=== PATIENT | male | born 1950 | race Caucasian/White ===

== ENCOUNTER 2021-06-17 09:20 | Emergency (ER) | payer MEDICARE ==
[~2021-06-17] VITALS: Ht 177.8 cm; Wt 99.8 kg
[~2021-06-17 09:20] MED LIST: ADULT LOW DOSE81 MG PO; LISINOPRIL-HCT1 EAC2 PO; MULTIVITAMINS1 EAC7 PO
[2021-06-17] MEDS ORDERED: METOPROLOL SUCC25 MG PO (09:53)
[2021-06-17] MEDS ORDERED: HYDROCHLOROTH12.5 MG PO (09:53)
[2021-06-17] MEDS ORDERED: LOSARTAN POTAS100 MG PO (09:53)
--- NOTE | 2021-06-17 18:24 | EKG ---
[facility] [address] [facility] [place] [address] Signed Supraventricular tachycardia Inferior infarct , age undetermined Abnormal ECG No previous ECGs available Confirmed by ADITI BONILLA MD ([id number]) on 06/17/2021 6:24:36 PM Electronically Signed By: ADITI BONILLA MD 06/17/21 182 PATIENT NAME: QUIANA MADRIGAL Electrocardiogram DATE OF : 52 PHYSICIAN: ADITI BONILLA MD REPORT #: [id number] REPORT IS CONFIDENTIAL AND NOT TO BE RELEASED WITHOUT AUTHORIZATION
--- NOTE | 2021-06-17 18:25 | EKG ---
[facility] [address] [facility] [place] [address] Signed Normal sinus rhythm Inferior infarct (cited on or before 17-JUN-2021) Abnormal ECG When compared with ECG of 17-JUN-2021 09:26, (Unconfirmed) Vent. rate has decreased BY 83 BPM Nonspecific T wave abnormality has replaced inverted T waves in Inferior leads Confirmed by ADITI BONILLA MD ([id number]) on 06/17/2021 6:24:55 PM Electronically Signed By: ADITI BONILLA MD 06/17/21 1825 PATIENT NAME: QUIANA MADRIGAL Electrocardiogram DATE OF : [birth year] PHYSICIAN: ADITI BONILLA MD REPORT #: [id number] REPORT IS CONFIDENTIAL AND NOT TO BE RELEASED WITHOUT AUTHORIZATION
== END 2021-06-17 11:05 | disposition home or self-care (01) ==
LOC: ED 09:20
DX: I47.1 Supraventricular tachycardia (principal); Z79.899 Other long term (current) drug therapy; Z79.82 Long term (current) use of aspirin
CPT/HCPCS: 36415; 71045; 80053; 83735; 84484; 85025; 85060; 85379; 93005; 93010; 96374; 99285-25; J0153

== ENCOUNTER 2021-10-14 10:25 | Day surgery (SDC) | payer MEDICARE, OTHER ==
[~2021-10-14] VITALS: Ht 177.8 cm; Wt 100.0 kg
[~2021-10-14 10:25] MED LIST changes: +FLECAINIDE ACET50 MG PO; +HYDROCHLOROTH12.5 MG PO; +LOSARTAN POTAS100 MG PO; +METOPROLOL SUCC25 MG PO; +OSTERA TABLET1 EACH PO; +VERAPAMIL ER180 MG PO; +VIT C-ROSE HIP500 MG PO
--- NOTE | 2021-10-14 11:08 | NUR ---
JULY 2021 FELL OFF LADDER. NO INJURIES.
--- NOTE | 2021-10-14 11:10 | NUR ---
STATES LEFT FOOT NUMB AND LITTLE BIT ON R DUE TO PINCHED NERVE.
--- NOTE | 2021-10-14 12:52 | NUR ---
10/14/21 1252 Caridad Altman 1230 PT ARRIVED TO PACU ASLEEP BUT EASILY AROUSABLE. HE WAS BREATHING ON HIS OWN AND HIS O2 SATURATION IS AT 98%. PT DENIES ANY PAIN OR NAUSEA. GAVE PT A GLASS OF WATER AND HE IS ABLE TO DRINK IT WITHOUT ANY DISCOMFORT.
--- NOTE | 2021-10-19 08:06 | PATH ---
[facility] [address] [facility] [place], [place] [address] Signed SPECIMEN(S): A BONE MARROW - CORE SPECIMEN(S): B BONE MARROW - ASPIRATION SPECIMEN(S): C FLOW CYTOMETRY IN BM EDTA CLINICAL HISTORY: Bone marrow biopsy. 71-year-old male with history of MDS and CLL in 2016, observation only, now with progressive macrocytic anemia. D46.9 (myelodysplastic syndrome, unspecified) DIAGNOSIS SUMMARY: Peripheral blood - Moderate macrocytic, normochromic anemia. Bone marrow aspirate smears, clot section cell block, and trephine biopsy: - Hypercellular bone marrow with erythroid hyperplasia, dyserythropoiesis, and ring sideroblasts consistent with myelodysplastic syndrome (MDS). - Slight increased number of plasma cells. - Please see Diagnostic Comment. DIAGNOSTIC COMMENT: Bone marrow morphologic evaluation is significant for marked hypercellularity with erythroid hyperplasia, mild dyserythropoiesis with many ring sideroblasts identified. Overall findings are consistent with myelodysplastic syndrome with ring sideroblasts. No increase in blasts is identified. Slight increased number of plasma cells identified by morphology and immunohistochemistry (4-5%). Concurrent flow cytometry analysis demonstrates the presence of a minute population of monotypic plasma cells with kappa light chain restriction. Clinical correlation with protein electrophoresis and radiologic findings will be needed for further assessment of this patient's plasma cell dyscrasia. Patient history of chronic lymphocytic leukemia (CLL) is noted. The current study shows no increased number of B-cells by morphology or immunohistochemistry. Flow cytometry analysis is negative for a monotypic population of B-cells or features of lymphoproliferative disorder. Cytogenetic studies, MDS FISH, and SF3B1 mutation studies are pending and will be reported in an addendum. This case is reviewed and dictated by Christopher Gutierrez MD. A board-certified hematopathologist. NA:smn:C1NR PATIENT NAME: QUIANA MADRIGAL PATHOLOGY DATE OF : 52 REPORT #: [id number] PHYSICIAN: JUMANA PATHOLOGY PCP: ASIYA CHACON MD REPORT IS CONFIDENTIAL AND NOT TO BE RELEASED WITHOUT AUTHORIZATION [facility] [address] [facility] [place], [place] [address] Signed PERIPHERAL BLOOD: HEMOGRAM ([facility]; 10/14/2021): WBC 7.0 K/uL, RBC 2.31 M/uL, HGB 8.6 g/dL, HCT 25.0%, MCV 108.4 fL, MCH 37.4 pg, MCHC 34.5 g/dL, RDW 19.6%, PLT 334 K/uL. DIFFERENTIAL COUNT: 60% neutrophils, 33% lymphocytes, 5% monocytes, 1% eosinophils, 1% basophils. Review of peripheral blood smear and CBC data demonstrate that the RBCs are decreased in number and are macrocytic, normochromic with moderate anemia present. Moderate anisopoikilocytosis is present with occasional ovalocytes seen. No rouleaux formation is identified. Occasional nucleated RBCs are encountered. The WBCs are normal in number and distribution. The neutrophils show unremarkable morphology. No immature cells are seen. The lymphocytes show a spectrum of reactive morphology including occasional large granular lymphocytes. The platelets are normal in number and unremarkable in morphology. BONE MARROW: BONE MARROW ASPIRATE SMEARS: The bone marrow aspirate smears are adequately cellular for evaluation. Trilineage hematopoiesis is present with progressive ordinary maturation. There is no increase in blasts noted. Erythroid hyperplasia is noted. The erythroid precursors show megaloblastic changes with occasional nuclear budding and cells and mitosis. The plasma cells are not increased and show unremarkable morphology. The lymphocytes are normal in number and mature in morphology. The megakaryocytes are scattered and appear normal in number with occasional micromegakaryocytes encountered. BONE MARROW DIFFERENTIAL: 1% blasts, 3% promyelocytes, 8% myelocytes, 25% segmented neutrophils, 7.6% lymphocytes, 1.4% monocytes, 3% eosinophils, 4% plasma cells, and 47% erythroid. BONE MARROW CORE BIOPSY AND CLOT SECTION: The bone marrow core biopsy demonstrates a hypercellular bone marrow for age with an average cellularity of 80%. Trilineage hematopoiesis is present with morphologic characteristics as described above. There are no lymphoid aggregates, granulomas, or metastatic tumor cells present. No increase in blasts is identified. No increase in plasma cells or large sheets are seen. The megakaryocytes are scattered and appear normal in number with occasional large platelets forming small aggregates noted. The cell block shows similar findings. PATIENT NAME: QUIANA MADRIGAL PATHOLOGY DATE OF : 52 REPORT #: [id number] PHYSICIAN: JUMANA PATHOLOGY PCP: ASIYA CHACON MD REPORT IS CONFIDENTIAL AND NOT TO BE RELEASED WITHOUT AUTHORIZATION [facility] [address] [place], [place] [address] Signed SPECIAL STAINS (with appropriately active control): - Iron (aspirate smears): Markedly increased storage iron and sideroblastic iron with increased ring sideroblasts (more than 25%). - Iron (block B): Increased storage iron with ring sideroblasts identified. - Reticulin stain: Moderate increase in bone marrow reticulin fibrosis (MF-2). IMMUNOHISTOCHEMICAL STAINS (with appropriately active control): (Performed on block A1): - CD34: Highlights scattered positive cells with no increase in blasts present. - CD117: Highlights scattered positive cells with no increase in blasts present. - Myeloperoxidase: Highlights myeloid precursors. - CD71: Highlights erythroid precursors and confirm erythroid hyperplasia. - Factor VIII: Highlights megakaryocytes. - CD20: Negative for increased number of B-cells. - Pax5: Positive for scattered few B-cells - CD3: Highlights scattered T-cells. - CD5: Positive in T-cells - CD138: Highlight slightly increased plasma cells (4-5%) with perivascular distribution. (Performed on block B1): - CD138: Highlight slightly increased plasma cells (4-5%) with perivascular distribution. - PAX5: Scattered positive B-cells. NA:smn FLOW CYTOMETRY: Bone marrow aspirate, flow cytometry: - Monotypic plasma cells are detected (0.3%). - No increase in blasts (0.6% myeloblasts). - Myeloid with variable maturation pattern. - No atypical B-cell population. - T-cell subset with variable marking. - See Comment. COMMENT: About 0.3% of total events are kappa-restricted monotypic plasma cells. Flow cytometry analysis often underestimates the amount of plasma cells. Correlation with clinical and histologic findings is needed for further characterization of this patient's plasma cell dyscrasia. Also, correlation with clinical, morphologic, and genetic findings is PATIENT NAME: QUIANA MADRIGAL PATHOLOGY DATE OF : 52 REPORT #: [id number] PHYSICIAN: JUMANA PATHOLOGY PCP: ASIYA CHACON MD REPORT IS CONFIDENTIAL AND NOT TO BE RELEASED WITHOUT AUTHORIZATION [facility] [address] [facility] [place] [address] Signed recommended for full interpretation and to assess for disease processes not fully examined by flow cytometry analysis, including myelodysplastic syndrome and myeloproliferative neoplasm. A T-cell subset is detected (15% of lymphocytes, 2% of total events) co-expressing CD3 and CD56, likely to represent large granular lymphocytes which could be reactive. Correlation with morphology is recommended. FLOW CYTOMETRY ANALYSIS: FLOW DIFFERENTIAL (% Total CD45 vs. SSC gating): Myeloid 79%; Lymphoid 11%; Monocyte 2%; Dim CD45/Blast: 0.6%. Cell Count: 7.7 x 10*3/uL. POPULATION ANALYSIS: BLASTS: Analysis of the dim CD45 gate demonstrates 0.6% myeloblasts by CD34/CD117. LYMPHOID CELLS: The lymphocyte gate comprises 11% of total events and includes 76% T-cells with a CD4:CD8 ratio of 0.8:1. A T-cell subset is detected (15% of lymphocytes, 2% of total events) co-expressing CD3 and CD56 with dimmer to negative CD5 expression. 7% of lymphocytes are polyclonal B-cells with a kappa:lambda ratio of 2.2:1. The remainders are NK-cells. MYELOID CELLS: The myeloid population comprises 79% of the total events. Some decreased CD10 expression is observed. MONOCYTES: The monocyte population comprises 2% of the total events. Monocytes are not increased. No aberrant immunophenotypic expression is detected. PLASMA CELLS: An increased number of plasma cells are observed in the screening gate of CD45 neg-dim/CD38. For this reason, select additional antibodies are run to further characterize the plasma cells. 0.3% ckappa-restricted plasma cells are detected (n=131) expressing CD45 DIM-NEG, CD38 BR, CD138 DIM-MOD and cKAPPA MOD-BR while negative for CD19, CD20 and CD56. A background population of polyclonal plasma cells is also detected (0.9% of total events, n=423) expressing CD19 with a ckappa:clambda ratio of 1.5:1. MAST CELLS: 0.2% of total events are mast cells (n=41). Initial Antibodies Used: KAPPA, LAMBDA, CD20, CD10, CD19, CD23, CD38, CD16, CD56, CD8, CD5, CD2, CD4, CD7, CD3, CD14, CD33, CD13, HLADR, CD34, CD117, CD15, CD45. Additional Antibodies (necessary for further plasma cell analysis): ckappa, clambda, CD138. Total Antibodies Used: 26. PATIENT NAME: QUIANA MADRIGAL PATHOLOGY DATE OF : 52 REPORT #: [id number] PHYSICIAN: JUMANA PATHOLOGY PCP: ASIYA CHACON MD REPORT IS CONFIDENTIAL AND NOT TO BE RELEASED WITHOUT AUTHORIZATION [facility] [address] [place], [place] [address] Signed JNB FINAL DIAGNOSIS PERFORMED BY: Christopher Gutierrez MD, FACP, Oct 15 2021 2:48PM CYTOGENETICS: Pending, to be reported by addendum. FISH ANALYSIS: Pending, to be reported by addendum. MOLECULAR / PCR: Pending, to be reported by addendum. GROSS DESCRIPTION: Two specimens are received in two containers, labeled "TJ." A. The specimen, labeled "TJ, core," is received in formalin and consists of two cores of red-brown bone (1.9-2.0 cm in length x 0.2 cm in diameter). The specimen is submitted entirely in cassette (A1) following decalcification in Immunocal. B. The specimen, labeled "TJ, clot," is received in formalin and consists of a portion of red-brown clot (1.8 x 0.8 x 0.3 cm in aggregate). The specimen is submitted entirely in cassette (B1). AC (under the direct supervision of a pathologist) The Gross Description was prepared using a voice recognition system. The report was reviewed for accuracy; however, sound-alike word errors, addition and/or deletions may occur. If there is any question about this report, please contact Client Services. ADDITIONAL NOTES: Immunohistochemical and/or in situ hybridization studies were performed on this case with the appropriate positive controls that react as expected. This test was developed and its performance characteristics determined by [facility]. It has not been cleared or approved by the U.S. Food and Drug Administration. The FDA has determined that such clearance or approval is not necessary. This test is used for clinical purposes. It should not be regarded as investigational or for research. [facility] is certified under the Clinical Laboratory Improvement Amendments of 1988 (CLIA) as qualified to perform high complexity clinical laboratory testing. This assay has not been validated for specimens that have been decalcified. In this case, certain antibodies were performed by both immunohistochemistry and flow cytometry analysis because flow cytometry analysis did not fully PATIENT NAME: QUIANA MADRIGAL PATHOLOGY DATE OF : 52 REPORT #: [id number] PHYSICIAN: [facility] PCP: ASIYA CHACON MD REPORT IS CONFIDENTIAL AND NOT TO BE RELEASED WITHOUT AUTHORIZATION [facility] [address] [place], [place] [address], [place] [address] Signed explain all the light microscopic findings. Immunohistochemistry aided in the analysis. Both methods are deemed medically necessary in this case. This test was developed and its performance characteristics determined by [facility]. It has not been cleared or approved by the US Food and Drug Administration. The FDA does not require this test to go through premarket FDA review. This test is used for clinical purposes. It should not be regarded as investigational or for research. This laboratory is certified under the Clinical Laboratory Improvement Amendments (CLIA) as qualified to perform high complexity clinical laboratory testing. PERFORMING LABORATORY: The technical component was performed by [facility], [address] [place] [address] (CLIA#: [id number]). Professional interpretation was performed by [facility], [facility], [address] [place] [address] (CLIA#: [id number]) The technical component was performed by [facility], [address] [place] [id number] (CLIA# [id number]). Professional interpretation was performed by [facility], [facility], [address] [place] [address] (CLIA#: [id number]) IMAGES: A: [id number] A: [id number] Diagnostician: Jerald Mclain MD Pathologist Electronically Signed 10/16/2021 Copies: ~ PATIENT NAME: QUIANA MADRIGAL PATHOLOGY DATE OF : 52 REPORT #: [id number] PHYSICIAN: JUMANA PATHOLOGY PCP: ASIYA CHACON MD REPORT IS CONFIDENTIAL AND NOT TO BE RELEASED WITHOUT AUTHORIZATION
== END 2021-10-14 13:10 | disposition home or self-care (01) ==
LOC: DS 10:25 → OPS 10:25 → DS 12:00 → OPS 13:10
PROVIDERS: ATTEND Specialist
PROC: 079T3ZX Drainage of Bone Marrow, Percutaneous Approach, Diagnostic (ICD-10-PCS; 2021-10-14)
PROC: 07DR3ZX Extraction of Iliac Bone Marrow, Percutaneous Approach, Diagnostic (ICD-10-PCS; principal; 2021-10-14 12:00)
DX: D46.9 Myelodysplastic syndrome, unspecified (principal); I10 Essential (primary) hypertension; Z88.8 Allergy status to other drugs, medicaments and biological substances
CPT/HCPCS: 00520; 80053; 82232; 82607; 82668; 82728; 82746; 83010; 83540; 83550; 83615; 84403; 85025; 85060; J2001; J2704; J7121

== ENCOUNTER 2024-01-24 01:53 | Emergency (ER) | payer MEDICARE, OTHER ==
[~2024-01-24] VITALS: Ht 177.8 cm; Wt 100.9 kg
[2024-01-24] MEDS ORDERED: LOSARTAN POTASS25 MG (02:12)
[2024-01-24 02:16] LABS: BASOPHILS 1.7 % (0-2); EOSINOPHILS 1.3 % (0-6); HEMATOCRIT 24.3 % (35.0-50.0); HEMOGLOBIN 8.4 g/dL (12.0-18.0); LYMPHOCYTES 15.1 % (24-44); MCH 37.2 (27-36); MCHC 34.3 g/dl (30-36); MCV 108.2 fl (81-99); MONOCYTES 10.5 % (0-12); NEUTROPHILS 71.4 % (39-80); PLATELET COUNT 293 K/uL (140-440); RBC 2.25 M/ul (4.3-5.7); RDW 30.7 (10.5-15.0)
[2024-01-24 02:47] LABS: ALBUMIN 4.2 g/dL (3.4-5.0); ALBUMIN/GLOBULIN RATIO 1.35 (1.1-2.4); ANION GAP 15.3 (7-21); BUN/CREATININE RATIO 16.21 (6.0-28.6); CREATININE, SERUM 1.11 mg/dL (0.70-1.30); POTASSIUM 4.3 mmol/L (3.5-5.1); PROTEIN, TOTAL 7.3 g/dL (6.4-8.2)
[2024-01-24 03:03] LABS: ABO A; ANTIBODY SCREEN NEGATIVE; RH POSITIVE
[2024-01-24 03:04] LABS: INFLUENZA B NAA NEGATIVE (NEGATIVE); RESPIRATORY SYNCYTIAL VIR NAA NEGATIVE (NEGATIVE)
[2024-01-24] MEDS ORDERED: OSELTAMIVIR PHOSPHATE 75 MG HOME.PACK PO ONE (03:30)
[2024-01-24 04:15] VITALS: BP 130/68
--- NOTE | 2024-01-24 22:55 | EKG ---
[facility] [address] [facility] [place] [address] Signed Sinus rhythm with premature atrial complexes Possible Inferior infarct (cited on or before 17-JUN-2021) Abnormal ECG When compared with ECG of 17-JUN-2021 09:47, premature atrial complexes are now present Confirmed by Janell Rico MD () on 01/24/2024 10:54:57 PM Electronically Signed By: JANELL RICO MD 01/24/24 2255 PATIENT NAME: QUIANA MADRIGAL Electrocardiogram DATE OF : 52 PHYSICIAN: JANELL RICO MD REPORT #: [id number] REPORT IS CONFIDENTIAL AND NOT TO BE RELEASED WITHOUT AUTHORIZATION
[2024-01-25 08:46] LABS: IS CROSSMATCH COMPATIBLE
[2024-01-25 08:47] LABS: IS CROSSMATCH COMPATIBLE
== END 2024-01-24 04:16 | disposition home or self-care (01) ==
LOC: ED 01:53
PROVIDERS: Internal Medicine
DX: J10.1 Influenza due to other identified influenza virus with other respiratory manifestations (principal); Z79.82 Long term (current) use of aspirin; Z88.8 Allergy status to other drugs, medicaments and biological substances
CPT/HCPCS: 36415; 71045; 80053; 83880; 84484; 85025; 85060; 86850; 86900; 86901; 86922; 87502; 93005; 93010; 99285-25; A9270; P9016; U0002

== ENCOUNTER 2024-04-28 02:25 | Emergency (ER) | payer MEDICARE, OTHER ==
[~2024-04-28] VITALS: Ht 177.8 cm; Wt 103.1 kg
[~2024-04-28 02:25] MED LIST changes: +LOSARTAN POTASS25 MG
[2024-04-28] MEDS ORDERED: LACTATED RINGER'S 1,000 ML IV ONE (02:45)
[2024-04-28 02:47] LABS: EOSINOPHILS 2.1 % (0-6)
[2024-04-28 02:51] LABS: BASOPHILS 1.4 % (0-2); HEMATOCRIT 19.7 % (35.0-50.0); HEMOGLOBIN 6.8 g/dL (12.0-18.0); LYMPHOCYTES 43.8 % (24-44); MCH 34.7 (27-36); MCHC 34.7 g/dl (30-36); MCV 99.9 fl (81-99); MONOCYTES 2.7 % (0-12); PLATELET COUNT 182 K/uL (140-440); RBC 1.97 M/ul (4.3-5.7); RDW 25.9 (10.5-15.0)
[2024-04-28 02:57] LABS: INR 1.12 (0.80-1.30); PROTIME 14.3 Sec (11.2-14.2)
[2024-04-28] MEDS ORDERED: INQOVI 35 MG-11 EACH PO (02:58)
[2024-04-28 03:10] LABS: ALBUMIN 3.8 g/dL (3.4-5.0); ALBUMIN/GLOBULIN RATIO 1.19 (1.1-2.4); ANION GAP 14.2 (7-21); BILIRUBIN, TOTAL 0.9 mg/dL (0.2-1.0); BUN/CREATININE RATIO 22.22 (6.0-28.6); CREATININE, SERUM 0.99 mg/dL (0.70-1.30); MAGNESIUM 1.9 mg/dL (1.8-2.4); POTASSIUM 4.2 mmol/L (3.5-5.1)
[2024-04-28] MEDS ORDERED: FUROSEMIDE 20 MG/2 ML VIAL IV ONE (04:15)
[2024-04-28] MEDS ORDERED: ACETAMINOPHEN 325 MG TAB PO PRN (04:15)
[2024-04-28] MEDS ORDERED: diphenhydrAMINE HCL 50 MG/ML VIAL IV PRN (04:15)
[2024-04-28 09:22] VITALS: BP 114/67
--- NOTE | 2024-04-29 21:31 | EKG ---
[facility] [address] [facility] [place] [address] Signed Sinus rhythm with occasional and consecutive premature ventricular complexes Abnormal ECG When compared with ECG of 24-JAN-2024 01:59, premature ventricular complexes are now present premature atrial complexes are no longer present Confirmed by Karel Malhotra DO ([id number]) on 04/29/2024 9:31:44 PM Electronically Signed By: KAREL MALHOTRA DO 04/29/242130 PATIENT NAME: QUIANA MADRIGAL Electrocardiogram DATE OF : 52 PHYSICIAN: KAREL MALHOTRA DO REPORT #: [id number] REPORT IS CONFIDENTIAL AND NOT TO BE RELEASED WITHOUT AUTHORIZATION
== END 2024-04-28 09:23 | disposition home or self-care (01) ==
LOC: ED 02:25
PROVIDERS: Family Medicine
DX: D64.9 Anemia, unspecified (principal); T50.905A Adverse effect of unspecified drugs, medicaments and biological substances, initial encounter; D46.9 Myelodysplastic syndrome, unspecified; Z88.8 Allergy status to other drugs, medicaments and biological substances; Z79.899 Other long term (current) drug therapy
CPT/HCPCS: 36415; 36430; 71045; 80053; 83735; 83880; 84484; 85025; 85060; 85610; 86922; 93005; 93010; 96374; 99285-25; J1940; J7121; P9016

== ENCOUNTER 2024-05-14 00:21 | Emergency (ER) | payer MEDICARE, OTHER ==
[~2024-05-14] VITALS: Ht 177.8 cm; Wt 104.0 kg
[~2024-05-14 00:21] MED LIST changes: +INQOVI 35 MG-11 EACH PO
--- OUTSIDE RECORDS SUMMARY | 2024-05-14 00:28 | XMS ---
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 Jesica VISIT COUNT (12 MO.) 3 [facility] TOTAL 3 NOTE: Visits indicate total known visits. ED/UCC VISIT TRACKING (12 MO.) 05/14/2024 00:22 [facility] TYPE: Emergency COMPLAINT: - FEVER/CANCER PT 04/28/2024 02:26 [facility] TYPE: Emergency COMPLAINT: - CHEST PAIN DIAGNOSES: - Adverse effect of unspecified drugs, medicaments and biological substances, initial encounter - Allergy status to other drugs, medicaments and biological substances - Anemia, unspecified - Myelodysplastic syndrome, unspecified - Other chest pain - Other mcc (current) drug therapy 01/24/2024 01:54 [facility] TYPE: Emergency COMPLAINT: - DIFFICULTY BREATHING DIAGNOSES: - Allergy status to other drugs, medicaments and biological substances - Influenza due to other identified influenza virus with other respiratory manifestations - terminal carman (current) use of aspirin - Shortness of breath INPATIENT VISIT TRACKING (12 MO.) No inpatient visits to display in this time frame [email or web address]
[2024-05-14 01:20] LABS: HEMOGLOBIN 8.1 g/dL (12.0-18.0)
[2024-05-14 01:25] LABS: EOSINOPHILS 1.7 % (0-6); HEMATOCRIT 23.9 % (35.0-50.0); LYMPHOCYTES 93.9 % (24-44); MCH 32.2 (27-36); MCHC 33.9 g/dl (30-36); MONOCYTES 1.4 % (0-12); PLATELET COUNT 225 K/uL (140-440); RBC 2.51 M/ul (4.3-5.7); RDW 17.8 (10.5-15.0)
[2024-05-14 01:35] LABS: ALBUMIN 3.2 g/dL (3.4-5.0); ALBUMIN/GLOBULIN RATIO 0.91 (1.1-2.4); ANION GAP 11.4 (7-21); BILIRUBIN, TOTAL 0.9 mg/dL (0.2-1.0); BUN/CREATININE RATIO 19.79 (6.0-28.6); CALCIUM 8.5 mg/dL (8.5-10.1); CREATININE, SERUM 0.96 mg/dL (0.70-1.30); POTASSIUM 4.4 mmol/L (3.5-5.1); PROTEIN, TOTAL 6.7 g/dL (6.4-8.2)
[2024-05-14 01:43] LABS: BILIRUBIN, URINE NEGATIVE (negative); BLOOD/HGB, URINE NEGATIVE (Negative); KETONE, URINE NEGATIVE (Negative); LEUK ESTERASE, URINE NEGATIVE (negative); NITRITE, URINE NEGATIVE (negative); PH, URINE 6.5 (5-7)
[2024-05-14 01:56] LABS: INFLUENZA B NAA NEGATIVE (NEGATIVE); RESPIRATORY SYNCYTIAL VIR NAA NEGATIVE (NEGATIVE)
[2024-05-14 02:41] LABS: BASOPHILS 0.3 % (0-2); BASOPHILS, ABSOLUTE 0 %; EOSINOPHILS 1.8 % (0-6); EOSINOPHILS, ABSOLUTE 0; HEMATOCRIT 23.9 % (35.0-50.0); HEMOGLOBIN 8.3 g/dL (12.0-18.0); MCH 32.9 (27-36); MCHC 34.5 g/dl (30-36); MCV 95.4 fl (81-99); MONOCYTES 1.1 % (0-12); MONOCYTES, ABSOLUTE 0; NEUTROPHILS 3.8 % (39-80); NEUTROPHILS, ABSOLUTE 0; PLATELET COUNT 220 K/uL (140-440); RBC 2.51 M/ul (4.3-5.7); RDW 18.2 (10.5-15.0)
[2024-05-14] MEDS ORDERED: AMOX TR-K CLV1 EAC1 PO (02:49)
[2024-05-14] MEDS ORDERED: CIPRO500 MG PO (02:49)
[2024-05-14] MEDS ORDERED: AMOXICILLIN/CLAVULANATE K 875 MG HOME.PACK PO ONE (03:00)
[2024-05-14] MEDS ORDERED: CIPROFLOXACIN 500 MG TAB PO ONE (03:00)
[2024-05-14 03:22] VITALS: BP 145/71
== END 2024-05-14 03:30 | disposition home or self-care (01) ==
LOC: ED 00:21
PROVIDERS: Family Medicine
DX: D70.9 Neutropenia, unspecified (principal); R50.81 Fever presenting with conditions classified elsewhere; D46.9 Myelodysplastic syndrome, unspecified; Z88.8 Allergy status to other drugs, medicaments and biological substances; Z79.899 Other long term (current) drug therapy
CPT/HCPCS: 36415; 80053; 81003; 85025; 85060; 87040; 87502; 99283; U0002

== ENCOUNTER 2024-09-06 10:30 | Day surgery (SDC) | payer MEDICARE, OTHER ==
[~2024-09-06] VITALS: Ht 177.8 cm; Wt 104.0 kg
[~2024-09-06 10:30] MED LIST changes: +AMOX TR-K CLV1 EAC1 PO; +CIPRO500 MG PO; +IBLOOD GLUCOSE TEST STRIP 1 EA TEST VI PRN; +LACTATED RINGER'S 1,000 ML IV SCH; +LIDOCAINE HCL 1% 5 ML SDV INJ ONE; +MIDAZOLAM HCL 5 MG/5 ML VIAL IV PRN; +VITAMIN C500 M4 PO; +fentaNYL citrate 100 MCG/2 ML VIAL IV PRN
[2024-09-06 10:57] LABS: BASOPHILS 0.5 % (0.2-1.2); BASOPHILS, ABSOLUTE 0.04 K/uL (0.01-0.08); EOSINOPHILS 2.3 % (0.8-7.0); EOSINOPHILS, ABSOLUTE 0.19 K/uL (0.04-0.54); LYMPHOCYTES 40.7 % (21.8-53.1); MCH 34.9 PG (25.7-32.2); MCHC 34.3 g/dL (32.3-36.5); MCV 101.5 fL (79.0-92.2); MONOCYTES 10.1 % (5.3-12.2); MONOCYTES, ABSOLUTE 0.82 K/uL (0.30-0.82); NEUTROPHILS 46.0 % (34.0-67.9); NEUTROPHILS, ABSOLUTE 3.72 K/uL (1.78-5.38); RBC 3.93 M/uL (4.63-6.08)
[2024-09-06 11:28] VITALS: BP 154/64
[2024-09-06] MEDS ORDERED: LIDOCAINE HCL 2% 5 ML SDV ONE (11:52)
[2024-09-06 14:20] VITALS: BP 125/61
--- NOTE | 2024-09-06 14:27 | NUR ---
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 O2 AT 2L PER NC, BREATHING EVEN AND NON LABORED. LR INFUSING TO RW IV. ALL MONITORS IN PLACE. 1222- PT ASSISTED BY MYSELF AND 3 OTHER STAFF TO ROLL TO BACK, HEAD OF BED ELEVATED. PT TOLERATED WELL. DENIES PAIN AND NAUSEA. ASKS TO FALL BACK TO SLEEP. 1230- PT MOVED TO ROOM AIR AT THIS TIME, NO SIGNS OF DISTRESS. PT HAS REMAINED AWAKE AND REPORTS HE FEELS GREAT. 1240- PT UP TO SIDE OF BED, DENIES NAUSEA AND DIZZINESS. PT TO GET DRESSED, SALINE LOCK REMOVED, TIP INTACT, DRESSING APPLIED. PT CALLED FOR RIDE HOME. 1250- TRANSFERRED TO WHEELCHAIR WITH STEADY GAIT, VERBALIZED UNDERSTANDING OF INSTRUCTIONS. TAKEN OUT TO FAMILY CAR WITH ALL BELONGINGS, NO SIGNS OF DISTRESS.
--- NOTE | 2024-09-18 17:19 | PATH ---
[facility] [address] [facility] [place], [place] [address] Signed SPECIMEN(S): A BONE MARROW - CORE SPECIMEN(S): B BONE MARROW - ASPIRATION SPECIMEN(S): C BM, EDTA CLINICAL HISTORY: 74-year-old male [id number] Mut+ sideroblastic anemia. Assess disease status "illegible word "and a course of treatment DIAGNOSIS SUMMARY: Peripheral blood, smear - Macrocytosis. Bone marrow, aspirate, cell block of clotted aspirate, core biopsy: - Slightly hypercellular bone marrow with trilineage progressive hematopoiesis. - Negative for dyspoiesis, or increased ring sideroblasts. - See diagnostic comment. DIAGNOSTIC COMMENT: Patient history of sideroblastic anemia is noted. The current bone marrow evaluation is significant for slight hypercellularity. No dyspoiesis is identified. No ring sideroblasts are seen. In comparison to previous bone marrow study ([id number],10/14/2021), the cellularity is decreased and no erythroid hyperplasia or ring sideroblasts identified in the current study. Cytogenetic studies, FISH panel for MDS and myeloid NGS C are pending and will be reported in an PERIPHERAL BLOOD: Hemogram ([facility], 09/06/2024): WBC 8.09K/UL, RBC 3.90 3M/UL, hemoglobin 13.7 g/DL, hematocrit 39.9 percent, MCV 101.5 FL, MCH 34.9 PG, MCHC 34.3 g/DL, RDW SD 58.6 FL, RDW-CV 15.7%, platelets 124K/UL. Peripheral blood differential: 46% neutrophils, 41% lymphocytes, 10% monocytes, 2% eosinophils and 1% basophils. Review of peripheral blood smear and CBC data demonstrate that RBCs are slightly decreased in number and are macrocytic normochromic with no anemia present. The WBCs are normal in number and distribution. The neutrophils show unremarkable morphology. No immature cells/blasts are seen. The platelets are slightly decreased in number with unremarkable morphology. PATIENT NAME: QUIANA MADRIGAL PATHOLOGY DATE OF : 52 REPORT #: [id number] PHYSICIAN: JUMANA PATHOLOGY PCP: ASIYA CHACON MD REPORT IS CONFIDENTIAL AND NOT TO BE RELEASED WITHOUT AUTHORIZATION [facility] [address] [place], [place] [address] Signed BONE MARROW: Bone marrow aspirate smears: The bone marrow aspirate smears are adequately cellular for evaluation. Trilineage hematopoiesis is present with progressive maturation. There is no increase in blasts identified. The M:E ratio appears normal. There is no dyshematopoiesis identified. The megakaryocytes are scattered and appear normal in number and morphology. Bone marrow differential: 1% blasts, 2% promyelocytes, 20% myelocytes, 40% neutrophils, 6% lymphocytes, 6% eosinophils, and 24% erythroid. Bone marrow core biopsy and clot section the bone marrow core biopsy demonstrates slightly hypercellular bone marrow for age with marrow measuring cellularity of 40%. Trilineage hematopoiesis is present with progressive pulmonary maturation. There are no lymphoid aggregates, granulomas or metastatic tumor cells present. The megakaryocytes are scattered and appear normal in number and morphology. The clot section shows similar findings. Special stain: Performed with appropriately reactive controls and show the following results: Iron (aspirate smear): Markedly increased storage iron, negative for ring sideroblasts. Iron (block B1): Absent Iron (block B2): Storage iron present, increased with rare ring sideroblasts. Reticulin (block A1: Mild increase in bone marrow reticulin fibrosis (MF�1). Immunohistochemical stains: Performed on block A1 with appropriately reactive controls and show the following results: CD34/CD117: No increase in blasts. CD71: Highlights erythroid precursors. Myeloperoxidase: Highlights myeloid precursors with normal distribution. Factor VIII: Highlights scattered megakaryocytes. CD138:Highlights scattered plasma cells (3 to 4%) FLOW CYTOMETRY: Bone marrow aspirate, flow cytometry: - No increase in blasts (0.3% myeloblasts). - Atypical myeloid maturation. - No atypical B- cell population. - T-cell subset with variable marking. - See Comment. COMMENT: No increase in blasts is present. No monotypic B-cell population detected. A subset T-cell population is detected (14% of lymphocytes, 3% of total events) demonstrating co-expression of CD3 PATIENT NAME: QUIANA MADRIGAL PATHOLOGY DATE OF : 52 REPORT #: [id number] PHYSICIAN: JUMANA PATHOLOGY PCP: ASIYA CHACON MD REPORT IS CONFIDENTIAL AND NOT TO BE RELEASED WITHOUT AUTHORIZATION [facility] [address], [place] [address] Signed and CD56 with a subset dual positive for CD4 and CD8 and otherwise normal rico T-cell expression. Findings are most suggestive of large granular lymphocytes (LGL). Myeloid show atypical maturation pattern. Correlation with clinical, morphologic, and genetic findings is recommended for full interpretation and to assess for disease processes not fully examined by flow cytometry analysis, including myelodysplastic syndrome and myeloproliferative neoplasm. FLOW CYTOMETRY ANALYSIS: FLOW DIFFERENTIAL (% Total CD45 vs. SSC gating): Myeloid 62%; Lymphoid 24%; Monocyte 4%; Dim CD45/Blast 0.3%; Plasma Cells 0.1%. Cell Count: 1.1 x 10*4/uL. POPULATION ANALYSIS: BLASTS: Analysis of the dim CD45 gate demonstrates 0.3% myeloblasts by CD34/CD117 and 0.3% hematogones. LYMPHOID CELLS: The lymphocyte gate comprises 24% of total events and includes 78% T-cells with a CD4:CD8 ratio of 1.3:1. A subset T-cell population is detected (14% of lymphocytes, 3% of total events) demonstrating co-expression of CD3 and CD56 with a subset dual positive for CD4 and CD8 and otherwise normal rico T-cell expression. 4% of lymphocytes are B-cells with a kappa:lambda ratio of 1.6:1. The remainders are NK cells. MYELOID CELLS: The myeloid population comprises 62% of the total events. Atypical maturation in the CD13 vs CD16 plot is observed. MONOCYTES: The monocyte population comprises 4% of the total events. Monocytes are not increased. No aberrant immunophenotypic expression is detected. PLASMA CELLS: There is a noted clinical concern for monoclonal gammopathy. For this reason, select additional antibodies are run to further characterize the plasma cells. 0.1% polytypic plasma cells are detected (n=70) expressing CD45 DIM-NEG, CD19 DIM (partial), CD38 BR, CD138 MOD and CD56 (minor subset) while negative for CD20. Initial Antibodies Used: KAPPA, LAMBDA, CD20, CD10, CD19, CD23, CD38, CD16, CD56, CD8, CD5, CD2, CD4, CD7, CD3, CD14, CD33, CD13, HLADR, CD34, CD117, CD15, CD45. Additional Antibodies (necessary for further plasma cell analysis): ckappa, clambda, CD138. Total Antibodies Used: 26. DKW FINAL DIAGNOSIS OF FLOW CYTOMETRY PERFORMED BY: Christopher Gutierrez MD, Sep 17 2024 3:49PM PATIENT NAME: QUIANA MADRIGAL PATHOLOGY DATE OF : 52 REPORT #: [id number] PHYSICIAN: JUMANA PATHOLOGY PCP: ASIYA CHACON MD REPORT IS CONFIDENTIAL AND NOT TO BE RELEASED WITHOUT AUTHORIZATION [facility] [address], [place] [address] Signed CYTOGENETICS: Pending and will be reported in an addendum FISH ANALYSIS: MDS FISH panel is pending and will be reported in an addendum MOLECULAR / PCR: NGS myeloid panel is pending and will be reported in an addendum. GROSS DESCRIPTION: Two specimens are received in two containers A. The specimen, labeled and designated "Westley, T, bone marrow-core," is received in formalin and consists of a singular portion of hernández-red bone measuring 1.2 cm in length by up to 0.2 cm in diameter. The specimen is submitted for decalcification in Immunocal prior to processing. Entirely submitted in cassette (A1). B. The specimen, labeled and designated "Westley, T, bone marrow-aspiration," is received in formalin and consists of a singular portion of clotted blood measuring 2.1 x 1.0 x 0.8 cm. The specimen is sectioned and submitted entirely in cassettes (B1-B2). AB (under the direct supervision of a pathologist) The Gross Description was prepared using a voice recognition system. The report was reviewed for accuracy; however, sound-alike word errors, addition and/or deletions may occur. If there is any question about this report, please contact Client Services. ADDITIONAL NOTES: Immunohistochemical and/or in situ hybridization studies if performed in this case included appropriate positive controls that reacted as expected. This test was developed and its performance characteristics determined by [address] [facility]. It has not been cleared or approved by the U.S. Food and Drug Administration. The FDA has determined that such clearance or approval is not necessary. This test is used for clinical purposes. It should not be regarded as investigational or for research. [facility] is certified under the Clinical Laboratory Improvement Amendments of 1988 (CLIA) as qualified to perform high complexity clinical laboratory testing. In this case, certain antibodies were performed by both immunohistochemistry and flow cytometry analysis because flow cytometry analysis did not fully explain all the light microscopic findings. Immunohistochemistry aided in the analysis. Both methods are deemed medically PATIENT NAME: QUIANA MADRIGAL PATHOLOGY DATE OF : 52 REPORT #: [id number] PHYSICIAN: JUMANA JACKSON PCP: ASIYA CHACON MD REPORT IS CONFIDENTIAL AND NOT TO BE RELEASED WITHOUT AUTHORIZATION [address] [address] Signed necessary in this case. This test was developed and its performance characteristics determined by [address]. It has not been cleared or approved by the US Food and Drug Administration. The FDA does not require this test to go through premarket FDA review. This test is used for clinical purposes. It should not be regarded as investigational or for research. This laboratory is certified under the Clinical Laboratory Improvement Amendments (CLIA) as qualified to perform high complexity clinical laboratory testing. PERFORMING LABORATORY: The technical preparation of flow cytometry was performed by [facility], [address] [place], [place] [address], [place] [address] (CLIA#:� [id number]). Professional interpretation was performed by [facility], [address] [place] [address] (CLIA# [id number]). Technical component was performed by [address] [facility], [address] [place] [address] (CLIA# [id number]). Professional interpretation was performed by [facility], [address] [place] [address] (CLIA#: [id number]). IMAGES: [id number]: [id number]: [id number] Diagnostician: Christopher Gutierrez MD Pathologist Electronically Signed 09/18/2024 Copies: ~ PATIENT NAME: QUIANA MADRIGAL PATHOLOGY DATE OF : 52 REPORT #: [id number] PHYSICIAN: [email or web address] PCP: ASIYA CHACON MD REPORT IS CONFIDENTIAL AND NOT TO BE RELEASED WITHOUT AUTHORIZATION
== END 2024-09-06 12:50 | disposition home or self-care (01) ==
LOC: DS 10:30
PROVIDERS: ATTEND Specialist
PROC: 079T3ZX Drainage of Bone Marrow, Percutaneous Approach, Diagnostic (ICD-10-PCS; 2024-09-06)
PROC: 07DR3ZX Extraction of Iliac Bone Marrow, Percutaneous Approach, Diagnostic (ICD-10-PCS; principal; 2024-09-06 12:00)
DX: D46.9 Myelodysplastic syndrome, unspecified (principal); D75.89 Other specified diseases of blood and blood-forming organs; F17.220 Nicotine dependence, chewing tobacco, uncomplicated; N40.0 Benign prostatic hyperplasia without lower urinary tract symptoms; I10 Essential (primary) hypertension; Z79.899 Other long term (current) drug therapy; Z88.8 Allergy status to other drugs, medicaments and biological substances
CPT/HCPCS: 01112; 36415; 85025; J2003; J2704; J7121